=== PATIENT | male | born 1985 | race Caucasian/White ===

== ENCOUNTER → 2023-08-28 12:18 | Outpatient (CLI) | payer OTHER, MEDICAID, SELFPAY ==
[2023-08-28 20:19] LABS: Alanine Aminotransferase 28 IU/L (<50); Albumin 4.2 g/dL (3.5-5.0); Albumin Globulin Ratio 1.4 (1.0-2.8); Alkaline Phosphatase 63 U/L (38-126); Aspartate Aminotransferase 33 IU/L (17-59); BUN Creatinine Ratio 18.4 (6-22); Bilirubin Total 0.7 mg/dL (0.2-1.3); Blood Urea Nitrogen 14 mg/dL (9-20); Calcium 8.9 mg/dL (8.4-10.2); Carbon Dioxide 28 mmol/L (22-32); Chloride 106 mmol/L (98-107); Cholesterol 189 mg/dL (140-199); Estimated Glomerular Filt Rate > 60 mL/min (>60); Globulin 2.9 g/dL (1.7-4.1); Glucose 94 mg/dL (70-100); HDL Cholesterol 41 mg/dL (40-60); HEMOLYSIS < 15 (0-50); LDL Cholesterol Calculated 128 mg/dL (<100); Potassium 4.2 mmol/L (3.4-5.1); Sodium 140 mmol/L (137-145); Total Protein 7.1 g/dL (6.3-8.2); Triglycerides 98 mg/dL (35-150)
== END ==
PROVIDERS: PCP Physician Assistant; Visit Provider Physician Assistant
DX: Z13.6 Encounter for screening for cardiovascular disorders (principal); R03.0 Elevated blood-pressure reading, without diagnosis of hypertension; Z79.899 Other long term (current) drug therapy
CPT/HCPCS: 80053; 80061

== ENCOUNTER → 2024-12-17 12:39 | Outpatient (CLI) | payer OTHER, SELFPAY | PROVIDERS: PCP Physician Assistant; Referring Provider Physician Assistant; Visit Provider Physician Assistant | DX: J39.2 Other diseases of pharynx (principal) | CPT/HCPCS: 87070; 87147 ==

== ENCOUNTER → 2024-12-31 14:45 | Outpatient (CLI) | payer OTHER, SELFPAY | PROVIDERS: PCP Physician Assistant; Visit Provider Physician Assistant | DX: L08.9 Local infection of the skin and subcutaneous tissue, unspecified (principal) | CPT/HCPCS: 87070; 87075; 87077; 87147; 87186; 87205 ==

== ENCOUNTER 2025-01-23 13:43 | Emergency (ER) | payer OTHER, SELFPAY ==
[2025-01-23 13:54] VITALS: BP 142/97; PULSE 65; RESP 18; TEMP 37.2; O2SAT 99; BMI 32.5
--- NOTE | 2025-01-23 15:09 | ED_ITS ---
HPI - Skin/Abscess/Foreign Bdy <Michael Mathias PA-C - Last Filed: 01/23/25 16:34> General Chief complaint: Skin/Abscess/Foreign Body Stated complaint: MM spasm in face 24hrs, lump in neck, pc ref Time Seen by Provider: 01/23/25 15:05 History of Present Illness HPI narrative: 39-year-old male presents emergency department due to reports of left-sided facial twitching for the last 24 hours. He states they are intermittent with the last 1 being a couple of hours ago. States that he has been treated for a lump to the right side of his neck with doxycycline. States he spoke with the PCP who advised him to be seen in the ED. The lump has improved with the use the doxycycline. Denies any slurred speech, vision changes, nausea, vomiting, or any other concerning signs or symptoms. Related Data Previous Rx's ?Medication ?Instructions ?Recorded nystatin 100,000 unit/gram topical 1 applic topical DA NEGAR #30 grams 11/27/24 cream triamcinolone acetonide 0.1 % 1 applic topical .QHS 14 days #30 12/17/24 topical cream grams mupirocin 2 % topical ointment 1 applic topical BID #2 2 grams 01/10/25 Allergies Allergy/AdvReac Type Severity Reaction Status Date / Time morphine Allergy Verified 01/29/25 11:48 Review of Systems <Michael Mathias PA-C - Last Filed: 01/23/25 16:34> Review of Systems Narrative: GENERAL: Denies chills, fatigue, malaise, fever, sweats. HEENT: Denies sinus pain, ear pain, sore throat, difficulty swallowing, dizziness. RESPIRATORY: Denies dyspnea, cough, wheezing, hemoptysis, sputum. CARDIOVASCULAR: Denies chest pain, palpitations, orthopnea, edema, GASTROINTESTINAL: Denies nausea, vomiting, abdominal pain, diarrhea, constipation, melena. : Denies dysuria, frequency, incontinence, hematuria, urinary retention. MUSCULOSKELETAL: denies weakness, joint pain, or bony pain SKIN: Reports right neck lump. Denies rash, skin lesions, or other NEUROLOGIC: Reports left-sided facial twitching Denies weakness, headache, numbness, change in speech, confusion, seizures, incoordination. PSYCHIATRIC: No concerning psychosocial issues. 12 point review of systems is negative except for those stated above Patient History <Michael Mathias PA-C - Last Filed: 01/23/25 16:34> Family History (Updated 08/28/24 @ 16:35 by Boni Vu MD) Other Screening for cardiovascular condition Social History Smoking Status: Never smoker Smoking Status: Never smoker Exam <Michael Mathias PA-C - Last Filed: 01/23/25 16:34> Narrative Exam Narrative: GENERAL: Well-developed patient, in mild distress. HEAD: Atraumatic. Normocephalic. EYES: Pupils equal round and reactive. Extraocular motions intact. No scleral icterus. No injection or drainage. ENT: Nose without bleeding, purulent drainage. Throat without erythema, tonsillar hypertrophy or exudate. Airway patent. NECK: Trachea midline. Non tender EXTREMITIES: No edema or joint tenderness. NEURO: AOx3. Cranial nerves 2-12 intact SKIN: Very small mass to the right side of the neck, no erythema. Initial Vital Signs Initial Vital Signs: Vital Signs Temperature 98.9 F 01/23/25 13:54 Pulse Rate 65 01/23/25 13:54 Respiratory Rate 18 01/23/25 13:54 Blood Pressure 142/97 H 01/23/25 13:54 Pulse Oximetry 99 01/23/25 13:54 Oxygen Delivery Method Room Air 01/23/25 13:54 <Manas Caba MD - Last Filed: 01/30/25 06:52> Initial Vital Signs Initial Vital Signs: Vital Signs Temperature 98.9 F 01/23/25 13:54 Pulse Rate 65 01/23/25 13:54 Respiratory Rate 18 01/23/25 13:54 Blood Pressure 142/97 H 01/23/25 13:54 Pulse Oximetry 99 01/23/25 13:54 Oxygen Delivery Method Room Air 01/23/25 13:54 Course <Michael Mathias PA-C - Last Filed: 01/23/25 16:34> Orders Ordered: ED Orders 01/23/25 15:24 CBC Auto Diff [Complete Blood Count AUTO DIFF] Stat CMP [Comprehensive Metabolic Panel] Stat Vital Signs Vital signs: Vital Signs - 8 hr 01/23/25 13:54 Temperature 98.9 F Pulse Rate 65 Respiratory Rate 18 Blood Pressure 142/97 H Pulse Oximetry 99 Oxygen Delivery Method Room Air <Manas Caba MD - Last Filed: 01/30/25 06:52> Orders Ordered: ED Orders 01/23/25 15:24 CBC Auto Diff [Complete Blood Count AUTO DIFF] Stat CMP [Comprehensive Metabolic Panel] Stat Vital Signs Vital signs: Vital Signs - 8 hr 01/23/25 13:54 Temperature 98.9 F Pulse Rate 65 Respiratory Rate 18 Blood Pressure 142/97 H Pulse Oximetry 99 Oxygen Delivery Method Room Air MDM - Skin/Abscess/Foreign Bdy <Michael Mathias PA-C - Last Filed: 01/23/25 16:34> Lab Data 01/23/25 15:46 01/23/25 15:46 Labs: Lab Results 01/23/25 Range/Units 15:46 WBC 5.6 (4.5-11.0) X10^3/uL RBC 5.01 (4.5-5.9) X10^6/uL Hgb 14.9 (13.5-17.5) g/dL Hct 42.7 (41-53) % MCV 85.1 (80-100) fL MCH 29.6 (26-34) PG MCHC 34.8 (30-36) % RDW 13.1 (11.6-14.8) % Plt Count 213 (150-400) X10^3/uL Neut % (Auto) 58.2 (50-75) % Lymph % (Auto) 32.9 (25-40) % [place] % (Auto) 6.8 (3-14) % Eos % (Auto) 1.2 L (2-4) % Baso % (Auto) 0.9 (0-2) % Neut # (Auto) 3300 (2589-3401) /uL Lymph # (Auto) 1900 (5727-6792) /uL [place] # (Auto) 400 (0-900) /uL Eos # (Auto) 100 (0-450) /uL Baso # (Auto) 100 (0-100) /uL Sodium 138 (137-145) mmol/L Potassium 4.1 (3.4-5.1) mmol/L Chloride 102 (98-107) mmol/L Carbon Dioxide 29 (22-32) mmol/L BUN 18 (9-20) mg/dL Creatinine 0.81 (0.66-1.25) mg/dL Estimated GFR > 60 (>60) mL/min BUN/Creatinine Ratio 22.2 H (6-22) Glucose 98 (70-99) mg/dL Calcium 9.3 (8.4-10.2) mg/dL Total Bilirubin 0.3 (0.2-1.3) mg/dL AST 27 (17-59) IU/L ALT 16 (<50) IU/L Alkaline Phosphatase 73 (38-126) U/L Total Protein 8.0 (6.3-8.2) g/dL Albumin 4.6 (3.5-5.0) g/dL Globulin 3.4 (1.7-4.1) g/dL Albumin/Globulin Ratio 1.4 (1.0-2.8) MDM Narrative Medical decision making narrative: ED course: This is a 39-year-old male presenting to the emergency department due to reports of intermittent facial twitching to the left side. Patient did report having a infected ?lump? to the right side that was treated with the antibiotics which significantly improved that area on exam as well as per patient. Somewhat vague symptoms but patient was had no neuro deficits concerning for any kind of intracranial deficit or hemorrhage. Lab work showed no evidence of flexor abnormalities. It also showed no evidence of worsening infection as patient was concerned. Recommended follow up with PCP CC: Facial twitching Complicating co-morbidities: None Data collected from: Previous notes Medical records reviewed: Patient was initially seen for right neck lump 3 weeks ago at PCP. Also has a nasal congestion. Patient was referred to ENT and given a prescription for doxycycline and mupirocin. . Patient was seen again by his PCP a week later and said the lump to the right-sided neck is dramatically improved. Swab was positive for MRSA. Patient was seen again a week later and states that the bump to the right-sided neck was dramatically improved. Ultrasound soft tissue of the head and neck was ordered. Differential considered, but not limited to: Electrolyte abnormality, intracranial abnormality Exam documented above, pertinent findings include: No neuro deficits on exam Lab Test results independently reviewed as above. Pertinent findings: Lab work unremarkable Imaging studies independently reviewed: None obtained Scores Used: None MIPS Elements: None Consultations: None Treatments: None Re-evaluations: None Discussion: Discussed plan with the patient was comfortable with the plan Diagnosis: Facial twitching Disposition: see below, along with detailed discharge instructions that have been reviewed with patient as well as indications for ED re-evaluation and additional outpatient follow up <Manas Caba MD - Last Filed: 01/30/25 06:52> Lab Data Labs: Lab Results 01/23/25 Range/Units 15:46 WBC 5.6 (4.5-11.0) X10^3/uL RBC 5.01 (4.5-5.9) X10^6/uL Hgb 14.9 (13.5-17.5) g/dL Hct 42.7 (41-53) % MCV 85.1 (80-100) fL MCH 29.6 (26-34) PG MCHC 34.8 (30-36) % RDW 13.1 (11.6-14.8) % Plt Count 213 (150-400) X10^3/uL Neut % (Auto) 58.2 (50-75) % Lymph % (Auto) 32.9 (25-40) % [place] % (Auto) 6.8 (3-14) % Eos % (Auto) 1.2 L (2-4) % Baso % (Auto) 0.9 (0-2) % Neut # (Auto) 3300 (6882-1838) /uL Lymph # (Auto) 1900 (3999-4134) /uL [place] # (Auto) 400 (0-900) /uL Eos # (Auto) 100 (0-450) /uL Baso # (Auto) 100 (0-100) /uL Sodium 138 (137-145) mmol/L Potassium 4.1 (3.4-5.1) mmol/L Chloride 102 (98-107) mmol/L Carbon Dioxide 29 (22-32) mmol/L BUN 18 (9-20) mg/dL Creatinine 0.81 (0.66-1.25) mg/dL Estimated GFR > 60 (>60) mL/min BUN/Creatinine Ratio 22.2 H (6-22) Glucose 98 (70-99) mg/dL Calcium 9.3 (8.4-10.2) mg/dL Total Bilirubin 0.3 (0.2-1.3) mg/dL AST 27 (17-59) IU/L ALT 16 (<50) IU/L Alkaline Phosphatase 73 (38-126) U/L Total Protein 8.0 (6.3-8.2) g/dL Albumin 4.6 (3.5-5.0) g/dL Globulin 3.4 (1.7-4.1) g/dL Albumin/Globulin Ratio 1.4 (1.0-2.8) Discharge Plan Departure Patient Disposition: Home Clinical Impression: Facial twitching Activity Restrictions/Additional Instructions: Thank you for coming to the [facility] Emergency Department today. Your exam today was reassuring. There were no neurologic deficit. The lab work showed no evidence of infection. Infection your electrolytes were all within normal limits. I recommend he follow up with primary care if the twitching continues. Please return to the emergency department if you develop any slurred speech, significant numbness in her face, facial drooping, weakness, or any other concerning signs or symptoms. I hope you feel better soon. Please follow up with your primary care provider within a week if your symptoms continue. If you do not have a primary care provider please contact the [facility] Resource line at [phone]. They will ask some questions about your medical history and help you get set up with a provider in the community. Prescriptions: No Action mupirocin 2 % ointment 1 applic topical BID Qty: 22 1RF nystatin 100,000 unit/gram cream 1 applic topical DAILY Qty: 30 1RF triamcinolone acetonide 0.1 % cream 1 applic topical .QHS 14 Days Qty: 30 2RF Referrals: Brandy Story PA-C [Primary Care Provider, Medical] Stand Alone Forms: Patient Portal/API ED Sign-out <Manas Caba MD - Last Filed: 01/30/25 06:52> Cosign ED Attending Erica Attestation: I was immediately available in the department for consultation. ?This documentation has been reviewed and I agree with assessment and plan. Supervised by Manas Caba MD
[2025-01-23 16:00] LABS: Add Manual Diff / Slide Review NO; Hematocrit 42.7 % (41-53); Hemoglobin 14.9 g/dL (13.5-17.5); Lymphocytes Absolute Auto 1900 /uL (1100-4500); Mean Corpuscular HGB Conc 34.8 % (30-36); Mean Corpuscular Hemoglobin 29.6 PG (26-34); Mean Corpuscular Volume 85.1 fL (80-100); Platelet Count 213 X10^3/uL (150-400)
[2025-01-23 16:14] LABS: Alanine Aminotransferase 16 IU/L (<50); Albumin 4.6 g/dL (3.5-5.0); Albumin Globulin Ratio 1.4 (1.0-2.8); Alkaline Phosphatase 73 U/L (38-126); Blood Urea Nitrogen 18 mg/dL (9-20); Calcium 9.3 mg/dL (8.4-10.2); Carbon Dioxide 29 mmol/L (22-32); Chloride 102 mmol/L (98-107); Estimated Glomerular Filt Rate > 60 mL/min (>60); Globulin 3.4 g/dL (1.7-4.1); Glucose 98 mg/dL (70-99); HEMOLYSIS < 15 (0-50); Potassium 4.1 mmol/L (3.4-5.1); Sodium 138 mmol/L (137-145); Total Protein 8.0 g/dL (6.3-8.2)
[2025-01-23 16:41] VITALS: BP 139/70; PULSE 78; RESP 16; TEMP 36.8; O2SAT 99
== END 2025-01-23 16:38 | disposition home or self-care (01) ==
PROVIDERS: Emergency Provider Physician Assistant Medical; PCP Physician Assistant
DX: R25.3 Fasciculation (principal)
CPT/HCPCS: 36415; 80053; 85025; 99281; 99283

== ENCOUNTER → 2025-03-21 09:14 | Outpatient (CLI) | payer OTHER, SELFPAY | PROVIDERS: PCP Physician Assistant; Visit Provider Family Medicine | DX: M25.50 Pain in unspecified joint (principal) | CPT/HCPCS: 83516; 85651; 86038; 86140 ==

== ENCOUNTER → 2025-03-25 11:12 | Outpatient (CLI) | payer OTHER, SELFPAY ==
[2025-03-25 18:31] LABS: Add Manual Diff / Slide Review NO; Hematocrit 37.7 % (41-53); Hemoglobin 12.9 g/dL (13.5-17.5); Lymphocytes Absolute Auto 1400 /uL (1100-4500); Mean Corpuscular HGB Conc 34.3 % (30-36); Mean Corpuscular Hemoglobin 29.3 PG (26-34); Mean Corpuscular Volume 85.3 fL (80-100); Platelet Count 397 X10^3/uL (150-400)
[2025-03-25 18:40] LABS: Alanine Aminotransferase 22 IU/L (<50); Albumin 3.7 g/dL (3.5-5.0); Albumin Globulin Ratio 1.1 (1.0-2.8); Alkaline Phosphatase 81 U/L (38-126); Blood Urea Nitrogen 9 mg/dL (9-20); Calcium 8.6 mg/dL (8.4-10.2); Carbon Dioxide 27 mmol/L (22-32); Chloride 97 mmol/L (98-107); Cholesterol 154 mg/dL (140-199); Estimated Glomerular Filt Rate > 60 mL/min (>60); Globulin 3.4 g/dL (1.7-4.1); Glucose 101 mg/dL (70-99); HDL Cholesterol 31 mg/dL (40-60); HEMOLYSIS < 15 (0-50); Potassium 4.1 mmol/L (3.4-5.1); Sodium 135 mmol/L (137-145); Total Protein 7.1 g/dL (6.3-8.2); Triglycerides 91 mg/dL (35-150)
[2025-03-25 19:12] LABS: TSH w/ Reflex to FT4 0.45 uIU/mL (0.47-4.68)
[2025-03-25 19:24] LABS: Influenza A - CEPHEID Flu A NEGATIVE (NEGATIVE); Influenza B - CEPHEID Flu B NEGATIVE (NEGATIVE)
[2025-03-25 19:28] LABS: COVID-19 CEPHEID 4-PLEX PCR Negative (Negative)
[2025-03-25 20:04] LABS: Free T4, Direct Thyroxine 1.50 ng/dL (0.78-2.19)
[2025-03-28 19:08] LABS: Codfish Allergy IgE < 0.10 kU/L (Class 0); Hazelnut IgE <0.10 kU/L (Class 0); Salmon Allergy IgE < 0.10 kU/L (Class 0); Scallop Allergy IgE < 0.10 kU/L (Class 0); Sesame seed Allergy IgE < 0.10 kU/L (Class 0); Tuna Allergy IgE < 0.10 kU/L (Class 0); Wheat Allergy IgE < 0.10 kU/L (Class 0)
== END ==
PROVIDERS: PCP Physician Assistant; Referring Provider Physician Assistant Medical; Visit Provider Physician Assistant Medical
DX: K59.09 Other constipation (principal); M25.50 Pain in unspecified joint; L71.9 Rosacea, unspecified
CPT/HCPCS: 80053; 80061; 84439; 84443; 85025; 86003; 86430; 87070; 87086; 87637